=== PATIENT | female | born 1985 | race American Indian/Alaskan Native ===

== ENCOUNTER 2019-11-11 01:25 | Outpatient (CLI) | payer OTHER ==
[2019-11-11 01:49] VITALS: BP 137/73
[2019-11-11 02:17] LABS: Bacteria,Urine 1+ /HPF (Negative); Bilirubin,Urine NEG (Negative); Blood,Urine NEG (Negative); Color,Urine Yellow (Yellow); Mucus,Urine FEW /HPF
== END 2019-11-11 02:33 | disposition home or self-care (01) ==
LOC: TRG 01:25 → APU 01:27 → TRG 02:33
PROVIDERS: ATTEND Obstetrics & Gynecology
DX: O47.02 False labor before 37 completed weeks of gestation, second trimester (principal); Z3A.30 30 weeks gestation of pregnancy
CPT/HCPCS: 59025; 81001

== ENCOUNTER 2021-07-15 19:38 | Emergency (ER) | payer MEDICAID, OTHER ==
[2021-07-15 20:27] VITALS: BP 167/82
[2021-07-15] MEDS ORDERED: KETOROLAC 30 MG/1 ML INJ IV ONE (21:53)
[2021-07-15] MEDS ORDERED: dexAMETHasone 20 MG/5 ML VIAL IV ONE (21:53)
[2021-07-15] MEDS ORDERED: diazePAM 10 MG/2 ML SYRINGE IV ONE (21:54)
[2021-07-15 22:24] LABS: Basophils # (Auto) 0.1 K/mm3 (0.0-0.1); Basophils % (Auto) 0.7 % (0.0-1.8); Eosinophils # (Auto) 0.2 K/mm3 (0.0-0.4); Eosinophils % (Auto) 2.8 % (0.0-4.3); Hematocrit 39.2 % (30.3-42.9); Hemoglobin 12.3 gm/dl (10.1-14.3); Lymphocytes # (Auto) 3.5 K/mm3 (1.2-5.4); Lymphocytes % (Auto) 44.4 % (13.4-35.0); Mean Corpuscular HGB Conc 31 % (30-34); Mean Corpuscular Volume 90 fl (79-97); Monocytes # (Auto) 0.6 K/mm3 (0.0-0.8); Monocytes % (Auto) 7.2 % (0.0-7.3); Platelet Count 444 K/mm3 (140-440); Red Blood Count 4.38 M/mm3 (3.65-5.03); Red Cell Distribution Width 15.3 % (13.2-15.2)
[2021-07-15 22:39] LABS: Alanine Aminotransferase 14 units/L (7-56); Albumin 4.3 g/dL (3.9-5); Blood Urea Nitrogen 14 mg/dL (7-17); Calcium 8.8 mg/dL (8.4-10.2); Hemolysis Index 2
[2021-07-15 22:57] LABS: BUN/Creatinine Ratio 23
--- NOTE | 2021-07-15 23:14 | XRay Report ---
LUMBAR SPINE 3 VIEWS INDICATION: Pain - severe COMPARISON: None. FINDINGS: No acute, displaced fracture is seen. Alignment is within normal limits. Disc space height is maintained. No significant degenerative changes. CONCLUSION: 1. No acute findings. 2. Constipation is noted. Signer Name: Valente Young MD Signed: 07/15/2021 11:10 PM Workstation Name: [id number]
[2021-07-15 23:37] LABS: Bilirubin,Urine NEG (Negative); Blood,Urine NEG (Negative); Color,Urine Yellow (Yellow); Mucus,Urine 1+ /HPF; Protein,Urine <15 mg/dL mg/dL (Negative); Urobilinogen,Urine < 2.0 mg/dL (<2.0); WBC,Urine < 1.0 /HPF (0.0-6.0)
--- NOTE | 2021-07-16 00:12 | Emergency Department Report ---
ED Back Pain/Injury HPI - General Chief Complaint: Back Pain/Injury Stated Complaint: BACK PAIN & CONSTIPATION Source: patient Limitations: No Limitations - History of Present Illness Initial Comments: Patient is a 36-year-old -[place] female with a history of morbid obesity and hypertension who presents to the ED with complaint of acute onset persistent nontraumatic low back pain that radiates to the lower extremities bilaterally for the last 4 days. Patient states that the pain is constant and persistent and gets worse with any movement including ambulation. Patient states that she has also not had any bowel movement in the last 2 days because of worsening low back pain. Patient denies fever, chills, nausea and vomiting, traumatic injury, heavy lifting, fall, numbness and tingling or weakness of lower extremities bilaterally, urinary or bowel incontinence, saddle paresthesia, diarrhea, cough, chest pain or shortness of breath. MD Complaint: back pain (Low back pain radiating to the lower extremities bilaterally), other (Constipation) -: Sudden, days(s) (4) Similar Symptoms Previously: No Place: home Radiation: left leg, right leg Severity: severe Severity scale (0 -10): 8 Quality: sharp, aching Consistency: constant Improves With: none Worsens With: movement, walking, deep breaths/cough Context: unknown Associated Symptoms: denies other symptoms, constipation. denies: confusion, numbness, difficulty walking, cough, difficulty urinating, diaphoresis, incontinence, fever/chills, headaches, abdominal pain, loss of appetite, malaise, nausea/vomiting, rash, shortness of breath, syncope, other Treatments Prior to Arrival: acetaminophen - Related Data Previous Rx's Medication Instructions Recorded Last Taken Type Docusate Sodium [Dok] 100 mg PO BID PRN #60 cap 07/16/21 Unknown Rx Ibuprofen [Motrin] 800 mg PO Q8HR PRN #30 tablet 07/16/21 Unknown Rx Magnesium Citrate 296 ml PO ONCE #1 bottle 07/16/21 Unknown Rx methOCARBAMOL [Robaxin TAB] 750 mg PO Q8H PRN #30 tab 07/16/21 Unknown Rx predniSONE [Deltasone] 60 mg PO QDAY #15 tab 07/16/21 Unknown Rx Allergies Allergy/AdvReac Type Severity Reaction Status Date / Time acetaminophen [From Percocet] Allergy Hives Verified 11/11/19 01:35 oxycodone [From Percocet] Allergy Hives Verified 11/11/19 01:35 ED Review of Systems ROS: Stated complaint: BACK PAIN & CONSTIPATION Other details as noted in HPI Constitutional: denies: chills, fever Eyes: denies: eye pain, eye discharge, vision change ENT: denies: ear pain, throat pain Respiratory: denies: cough, shortness of breath, wheezing Cardiovascular: denies: chest pain, palpitations Endocrine: no symptoms reported Gastrointestinal: denies: abdominal pain, nausea, diarrhea Genitourinary: denies: urgency, dysuria, discharge Musculoskeletal: back pain (Low back pain). denies: joint swelling, arthralgia Skin: denies: rash, lesions Neurological: denies: headache, weakness, paresthesias Psychiatric: denies: anxiety, depression Hematological/Lymphatic: denies: easy bleeding, easy bruising ED Past Medical Hx - Past Medical History Previous Medical History?: Yes Hx Hypertension: Yes (not medicated) Hx Diabetes: No Hx Deep Vein Thrombosis: No Hx Renal Disease: No Hx Sickle Cell Disease: No Hx Seizures: No Hx Asthma: No - Surgical History Past Surgical History?: No - Social History Smoking Status: Current Every Day Smoker Substance Use Type: None - Medications Home Medications: Home Medications Medication Instructions Recorded Confirmed Last Taken Type Docusate Sodium [Dok] 100 mg PO BID PRN #60 cap 07/16/21 Unknown Rx Ibuprofen [Motrin] 800 mg PO Q8HR PRN #30 tablet 07/16/21 Unknown Rx Magnesium Citrate 296 ml PO ONCE #1 bottle 07/16/21 Unknown Rx methOCARBAMOL [Robaxin TAB] 750 mg PO Q8H PRN #30 tab 07/16/21 Unknown Rx predniSONE [Deltasone] 60 mg PO QDAY #15 tab 07/16/21 Unknown Rx ED Physical Exam - General Limitations: No Limitations General appearance: alert, in no apparent distress - Head Head exam: Present: atraumatic, normocephalic, normal inspection - Eye Eye exam: Present: normal appearance, PERRL, EOMI Pupils: Present: normal accommodation - ENT ENT exam: Present: normal exam, normal orophraynx, mucous membranes moist, TM's normal bilaterally, normal external ear exam - Neck Neck exam: Present: normal inspection, full ROM. Absent: tenderness - Respiratory Respiratory exam: Present: normal lung sounds bilaterally. Absent: respiratory distress, wheezes, rales, rhonchi, stridor, chest wall tenderness, accessory muscle use, prolonged expiratory - Cardiovascular Cardiovascular Exam: Present: normal rhythm, tachycardia, normal heart sounds. Absent: systolic murmur, diastolic murmur, rubs, gallop - GI/Abdominal GI/Abdominal exam: Present: soft, normal bowel sounds. Absent: tenderness, guarding, rebound, hyperactive bowel sounds, hypoactive bowel sounds, organomegaly - Extremities Exam Extremities exam: Present: normal inspection, full ROM, normal capillary refill. Absent: tenderness, pedal edema, joint swelling, calf tenderness - Back Exam Back exam: Present: normal inspection, full ROM, tenderness (Palpable lumbosacral paraspinal musculoskeletal tenderness), muscle spasm, paraspinal tenderness. Absent: CVA tenderness (R), CVA tenderness (L), vertebral tenderness - Neurological Exam Neurological exam: Present: alert, oriented X3, CN II-XII intact, normal gait, reflexes normal - Psychiatric Psychiatric exam: Present: normal affect, normal mood, anxious - Skin Skin exam: Present: warm, dry, intact, normal color. Absent: rash ED Course Vital Signs 07/15/21 07/15/21 07/15/21 20:20 20:26 22:43 Temperature 99 F Pulse Rate 103 H Respiratory 14 Rate Blood Pressure 167/82 [Right] O2 Sat by Pulse 100 Oximetry ED Medical Decision Making - Lab Data Result diagrams: 07/15/21 21:56 07/15/21 21:56 - Radiology Data Radiology results: report reviewed, image reviewed [facility] [address] [place] [address] XRay Report Signed Patient: PRINCESS MENARD MR#: [id number] : 1985 Acct:[id number] Age/Sex: 36 / F ADM Date: 07/15/21 Loc: ED Attending Dr: Ordering Physician: MALISSA SANTOYO Date of Service: 07/15/21 Procedure(s): XR spine lumbosacral 2-3V Accession Number(s): [id number] cc: MALISSA SANTOYO Fluoro Time In Minutes: LUMBAR SPINE 3 VIEWS INDICATION: Pain - severe COMPARISON: None. FINDINGS: No acute, displaced fracture is seen. Alignment is within normal limits. Disc space height is maintained. No significant degenerative changes. CONCLUSION: 1. No acute findings. 2. Constipation is noted. Signer Name: Valente Young MD Signed: 07/15/2021 11:10 PM Workstation Name: [id number] Transcribed By: KT Dictated By: Valente Young MD Electronically Authenticated By: Valente Young MD Signed Date/Time: 07/15/212309 DD/ 08 TD/TT: - Medical Decision Making This is a 36-year-old -[place] female with a history of morbid obesity and hypertension who presents to the ED with complaint of acute onset persistent nontraumatic low back pain that radiates to the lower extremities bilaterally for the last 4 days. Patient states that the pain is constant and persistent and gets worse with any movement including ambulation. Patient states that she has also not had any bowel movement in the last 2 days because of worsening low back pain. In the ED, patient is alert and oriented x3 and is not in any distress. L-spine x-ray showed no acute fractures or subluxations or herniated discs. Lab test results were reviewed and are all nonactionable. Patient was treated for pain in the ED and on reevaluation, patient's pain is well controlled medication. Patient was discharged home on medications and advised to follow-up with primary care physician in 7 to 10 days for reevaluation or return to the ED immediately if symptoms get worse. - Differential Diagnosis Sciatica; muscle spasm; muscle strain; constipation; UTI; Critical care attestation.: If time is entered above; I have spent that time in minutes in the direct care of this critically ill patient, excluding procedure time. ED Disposition Clinical Impression: Spasm of muscle of lower back Acute low back pain with sciatica Qualifiers: Back pain laterality: bilateral Sciatica laterality: bilateral sciatica Qualified Code(s): M54.42 - Lumbago with sciatica, left side; M54.41 - Lumbago with sciatica, right side Constipation Qualifiers: Constipation type: other constipation type Qualified Code(s): K59.09 - Other constipation Disposition: HOME / SELF CARE / HOMELESS Is pt being admited?: No Does the pt Need Aspirin: No Condition: Stable Instructions: Muscle Cramps and Spasms, [id number], Constipation, Adult, [id number], Sciatica, [id number] Additional Instructions: All lab test results were reviewed and are all nonactionable. L-spine x-ray showed no acute fractures or subluxations. There was an incidental finding of constipation. Your symptoms are likely due to musculoskeletal muscle spasm or muscle strain resulting also in sciatica. Therefore take medications with food, drink plenty of fluids and follow-up with your primary care physician in 7 to 10 days for reevaluation. Return to the ED immediately if symptoms get worse. Prescriptions: predniSONE [Deltasone] 60 mg PO QDAY #15 tab Docusate Sodium [Dok] 100 mg PO BID PRN #60 cap PRN Reason: Constipation Magnesium Citrate 296 ml PO ONCE #1 bottle Ibuprofen [Motrin] 800 mg PO Q8HR PRN #30 tablet PRN Reason: Pain , Severe (7-10) methOCARBAMOL [Robaxin TAB] 750 mg PO Q8H PRN #30 tab PRN Reason: Muscle Spasm Referrals: JESSENIA TORREZ MD [Staff Physician] - 3-5 Days Time of Disposition: 00:09 Print Language: INDONESIAN
== END 2021-07-16 00:35 | disposition home or self-care (01) ==
LOC: ED 19:38
DX: M62.830 Muscle spasm of back (principal); M54.40 Lumbago with sciatica, unspecified side; K59.00 Constipation, unspecified; I10 Essential (primary) hypertension; F17.200 Nicotine dependence, unspecified, uncomplicated; Z91.09 Other allergy status, other than to drugs and biological substances
CPT/HCPCS: 36415; 72100; 80053; 81001; 84703; 85025; 96374; 96375; 99284; J1100; J1885; J3360